=== PATIENT | female | born 1955 | race Two or more races ===

== ENCOUNTER 2021-05-15 15:17 | Emergency (ER) | payer OTHER ==
[~2021-05-15] VITALS: Ht 167.6 cm; Wt 68.5 kg
[2021-05-15 18:09] VITALS: BP 110/68
== END 2021-05-15 18:17 | disposition home or self-care (01) ==
LOC: ER 15:17
DX: M79.672 Pain in left foot (principal); M79.671 Pain in right foot

== ENCOUNTER 2021-05-18 15:46 | Emergency (ER) | payer OTHER ==
[~2021-05-18] VITALS: Ht 167.6 cm; Wt 113.9 kg
[2021-05-18 16:26] LABS: Urine Bacteria FEW /hpf (None Seen); Urine Blood Negative /uL (Negative); Urine Specific Gravity 1.007 (1.001-1.035); Urine WBC 2 /hpf (0 - 5)
[2021-05-18 16:42] LABS: Basophils # (auto) 0.1 10 ^3/uL (0-0.2); Basophils % (auto) 1.1 % (0.0-2.0); Eosinophils # (auto) 0.1 10 ^3/uL (0-0.8); Eosinophils % (auto) 0.6 % (0.0-7.0); Hematocrit 41.3 % (36.0-46.0); Hemoglobin 13.8 g/dL (12.2-16.2); Lymphocytes # (auto) 2.7 10 ^3/uL (0.4-5.4); Lymphocytes % (auto) 25.8 % (10.0-50.0); Mean Corpuscular Hemoglobin 28.3 pg (28.0-32.0); Mean Corpuscular Hgb Conc. 33.3 g/dL (32.0-36.0); Mean Corpuscular Volume 84.9 fL (80.0-100.0); Monocytes # (auto) 0.4 10 ^3/uL (0-1.3); Monocytes % (auto) 3.4 % (0.0-12.0); Neutrophils # (auto) 7.3 10 ^3/uL (1.6-8.6); Neutrophils % (auto) 69.1 % (37.0-80.0); Red Blood Cells 4.86 10^6/uL (4.0-5.20); Red Cell Distribution Width 15.2 % (11.8-14.3); White Blood Cell 10.5 10^3/uL (4.4-10.8)
[2021-05-18 17:04] LABS: Albumin 3.3 g/dL (3.4-5.0); Anion Gap 6 (5-15); Blood Urea Nitrogen 15 mg/dL (7-18); Calcium 8.7 mg/dL (8.5-10.1); Carbon Dioxide 25 mmol/L (21-32); Chloride 107 mmol/L (98-107); Glucose 176 mg/dL (74-106); Potassium 3.8 mmol/L (3.5-5.1); Sodium 138 mmol/L (136-145)
[2021-05-18 17:11] LABS: Alanine Aminotransferase 29 U/L (13-56); Alkaline Phosphatase 103 U/L (45-117); Aspartate Aminotransferase 24 U/L (15-37); Bilirubin, Total 0.3 mg/dL (0.2-1.0); GFR African American 77 mL/min; GFR Non-African American 64 mL/min; Total Protein 7.6 g/dL (6.4-8.2)
[2021-05-18 18:30] VITALS: BP 145/96
== END 2021-05-18 18:35 | disposition home or self-care (01) ==
LOC: ER 15:46
DX: R42 Dizziness and giddiness (principal); M54.12 Radiculopathy, cervical region; I10 Essential (primary) hypertension
CPT/HCPCS: 36415; 70450; 71045; 80053; 81001; 84484; 85025

== ENCOUNTER 2021-06-16 15:28 | Emergency (ER) | payer OTHER ==
[~2021-06-16] VITALS: Ht 167.6 cm; Wt 111.6 kg
[2021-06-16 15:58] VITALS: BP 113/66
[2021-06-16 16:56] LABS: Urine Bacteria FEW /hpf (None Seen); Urine Blood Negative /uL (Negative); Urine Mucus FEW (None Seen); Urine Specific Gravity 1.016 (1.001-1.035); Urine WBC 2 /hpf (0 - 5)
[2021-06-17] MEDS ORDERED: CEPH-322 PO (10:51)
== END 2021-06-16 18:33 | disposition left against medical advice (07) ==
LOC: ER 15:28
DX: R10.2 Pelvic and perineal pain (principal); I10 Essential (primary) hypertension; E78.5 Hyperlipidemia, unspecified; Z90.49 Acquired absence of other specified parts of digestive tract; Z90.710 Acquired absence of both cervix and uterus
CPT/HCPCS: 81001

== ENCOUNTER 2021-06-17 09:47 | Emergency (ER) | payer OTHER ==
[~2021-06-17] VITALS: Ht 167.6 cm; Wt 111.6 kg
[2021-06-17 10:43] VITALS: BP 120/71
[2021-06-17] MEDS ORDERED: CEPH-322 PO (10:51)
== END 2021-06-17 10:59 | disposition home or self-care (01) ==
LOC: ER 09:47
DX: L91.8 Other hypertrophic disorders of the skin (principal); I10 Essential (primary) hypertension; E78.5 Hyperlipidemia, unspecified; Z90.49 Acquired absence of other specified parts of digestive tract; Z90.710 Acquired absence of both cervix and uterus; Z79.2 Long term (current) use of antibiotics

== ENCOUNTER 2022-10-07 11:27 | Emergency (ER) | payer OTHER ==
[~2022-10-07] VITALS: Ht 167.6 cm; Wt 115.4 kg
[~2022-10-07 11:27] MED LIST: CEPH-322 PO
[2022-10-07 12:40] LABS: Albumin 3.5 g/dL (3.4-5.0); Potassium 4.3 mmol/L (3.5-5.1)
[2022-10-07 12:43] LABS: BUN/Creatinine Ratio 25.3; Bilirubin, Total 0.3 mg/dL (0.2-1.0); Total Protein 7.4 g/dL (6.4-8.2)
[2022-10-07 12:56] LABS: Urine Bacteria FEW /hpf (None Seen); Urine Blood Negative /uL (Negative); Urine Mucus FEW (None Seen); Urine Specific Gravity 1.026 (1.001-1.035); Urine WBC 166 /hpf (0 - 5)
[2022-10-07] MEDS ORDERED: NITR-87 PO (13:02)
[2022-10-07] MEDS ORDERED: cefTRIAXone SOD 1,000 MG VL IM ONE (13:15)
[2022-10-07 13:17] LABS: Basophils # (auto) 0.1 10 ^3/uL (0-0.2); Basophils % (auto) 0.6 % (0.0-2.0); Eosinophils # (auto) 0.1 10 ^3/uL (0-0.8); Eosinophils % (auto) 0.6 % (0.0-7.0); Hemoglobin 13.7 g/dL (12.2-16.2); Lymphocytes # (auto) 2.2 10 ^3/uL (0.4-5.4); Lymphocytes % (auto) 24.3 % (10.0-50.0); Mean Corpuscular Hemoglobin 28.4 pg (28.0-32.0); Mean Corpuscular Hgb Conc. 32.6 g/dL (32.0-36.0); Mean Corpuscular Volume 87.1 fL (80.0-100.0); Monocytes # (auto) 0.4 10 ^3/uL (0-1.3); Monocytes % (auto) 4.4 % (0.0-12.0); Neutrophils # (auto) 6.3 10 ^3/uL (1.6-8.6); Neutrophils % (auto) 70.1 % (37.0-80.0); Red Blood Cells 4.82 10^6/uL (4.0-5.20); Red Cell Distribution Width 14.1 % (11.8-14.3)
[2022-10-07] MEDS ORDERED: LIDOCAINE 1% HCL (LOCAL ANESTH.) INJ 20ML MDV ONE (13:36)
[2022-10-07 15:23] VITALS: BP 100/61
== END 2022-10-07 15:24 | disposition home or self-care (01) ==
LOC: ER 11:27
DX: N39.0 Urinary tract infection, site not specified (principal); N20.0 Calculus of kidney; I10 Essential (primary) hypertension; E78.5 Hyperlipidemia, unspecified; Z90.49 Acquired absence of other specified parts of digestive tract; Z90.710 Acquired absence of both cervix and uterus
CPT/HCPCS: 36415; 74176; 80053; 81001; 85025; 96372; 99285; J0696; J2001

== ENCOUNTER → 2022-12-10 | Day surgery (SDC) | payer OTHER ==
[~2022-12-10] VITALS: Ht 167.6 cm; Wt 115.2 kg
[~2022-12-10] MED LIST changes: -CEPH-322 PO; +HYDROmorphone HCL 2 MG/ML VL/or syr IV PRN; +LIDOCAINE 2% (LOCAL ANESTH.) PF 5ml SDV ONE; +MIDAZOLAM HCL 2MG/2ML 2ml VIAL (1mg/ml) ONE; +ONDANSETRON HCL 4 MG/2 ML VIAL IV PRN; +ONDANSETRON HCL 4 MG/2 ML VIAL ONE; +PROPOFOL 10 MG/ML 20 ML IV ONE; +ceFAZolin 1GM/50ML 100 ML IV ONE; +fentaNYL CITRATE 100 MCG/2 ML VL ONE
[2022-12-10 10:40] VITALS: BP 115/64
== END | disposition home or self-care (01) ==
LOC: SUR 06:44
PROVIDERS: ATTEND Urology
DX: N20.0 Calculus of kidney (principal); E66.9 Obesity, unspecified
CPT/HCPCS: 50590; C1769; J0690; J2001; J2250; J2405; J2704; J3010; J7030

== ENCOUNTER 2023-01-27 12:30 | Emergency (ER) | payer OTHER ==
[~2023-01-27] VITALS: Ht 167.6 cm; Wt 117.0 kg
[2023-01-27 13:25] LABS: Urine Bacteria FEW /hpf (None Seen); Urine Blood Negative /uL (Negative); Urine Mucus FEW (None Seen); Urine Specific Gravity 1.023 (1.001-1.035); Urine WBC 8 /hpf (0 - 5)
[2023-01-27] MEDS ORDERED: BENZ100C97 PO (16:11)
[2023-01-27] MEDS ORDERED: NITR-87 PO (16:11)
[2023-01-27 16:34] VITALS: BP 124/55
== END 2023-01-27 16:18 | disposition home or self-care (01) ==
LOC: ER 12:30
DX: N39.0 Urinary tract infection, site not specified (principal); R05.9 Cough, unspecified; I10 Essential (primary) hypertension; E78.5 Hyperlipidemia, unspecified; Z87.442 Personal history of urinary calculi; Z90.49 Acquired absence of other specified parts of digestive tract; Z90.710 Acquired absence of both cervix and uterus; Z79.899 Other long term (current) drug therapy
CPT/HCPCS: 81001

== ENCOUNTER 2023-08-14 13:00 | Emergency (ER) | payer OTHER ==
[~2023-08-14] VITALS: Ht 167.6 cm; Wt 118.6 kg
[~2023-08-14 13:00] MED LIST changes: +BENZ100C97 PO; -HYDROmorphone HCL 2 MG/ML VL/or syr IV PRN; -LIDOCAINE 2% (LOCAL ANESTH.) PF 5ml SDV ONE; -MIDAZOLAM HCL 2MG/2ML 2ml VIAL (1mg/ml) ONE; +NITR-87 PO; -ONDANSETRON HCL 4 MG/2 ML VIAL IV PRN; -ONDANSETRON HCL 4 MG/2 ML VIAL ONE; -PROPOFOL 10 MG/ML 20 ML IV ONE; -ceFAZolin 1GM/50ML 100 ML IV ONE; -fentaNYL CITRATE 100 MCG/2 ML VL ONE
[2023-08-14] MEDS ORDERED: KETOROLAC TROMETH 60MG/2ML VIAL IM ONE (14:30)
[2023-08-14 14:36] VITALS: BP 137/66; PULSE 89; RESP 17; TEMP 99; O2SAT 96
[2023-08-14 16:37] LABS: Urine Bacteria FEW /hpf (None Seen); Urine Blood Negative /uL (Negative); Urine Clarity HAZY (Clear); Urine Color Yellow (Yellow); Urine Hyaline Cast FEW /lpf (0 - 2); Urine Mucus FEW (None Seen); Urine Protein, UAD TRACE (Negative); Urine Specific Gravity 1.025 (1.001-1.035); Urine Urobilinogen Normal (Negative); Urine WBC 40 /hpf (0 - 5); Urine pH 5.5 (5.0-8.0)
[2023-08-14] MEDS ORDERED: BACDST PO (17:00)
[2023-08-14] MEDS ORDERED: IBUP-1455 PO (17:00)
[2023-08-14] MEDS ORDERED: PHEN-1044 PO (17:00)
== END 2023-08-14 17:10 | disposition home or self-care (01) ==
LOC: ER 13:00
DX: N39.0 Urinary tract infection, site not specified (principal); N20.0 Calculus of kidney; K76.0 Fatty (change of) liver, not elsewhere classified; R16.0 Hepatomegaly, not elsewhere classified; I10 Essential (primary) hypertension; E78.5 Hyperlipidemia, unspecified; Z90.49 Acquired absence of other specified parts of digestive tract; Z90.710 Acquired absence of both cervix and uterus; Z79.899 Other long term (current) drug therapy
CPT/HCPCS: 74176; 76775; 81001; 96372; 99285; J1885

== ENCOUNTER 2023-11-22 02:07 | Inpatient (IN) | payer OTHER ==
[~2023-11-22] VITALS: Ht 167.6 cm; Wt 124.0 kg
[~2023-11-22 02:07] MED LIST changes: +BACDST PO; +IBUP-1455 PO; +PHEN-1044 PO
[2023-11-22 05:28] LABS: Chloride 104 mmol/L (98-107); Potassium 4.3 mmol/L (3.5-5.1); Sodium 136 mmol/L (136-145)
[2023-11-22 05:29] LABS: Anion Gap 12 (5-15); Carbon Dioxide 20 mmol/L (20-30)
[2023-11-22 05:30] LABS: Calcium 9.7 mg/dL (8.7-10.4)
[2023-11-22 05:31] LABS: Basophils # (auto) 0.1 10 ^3/uL (0-0.2); Basophils % (auto) 0.8 % (0.0-2.0); Eosinophils # (auto) 0 10 ^3/uL (0-0.8); Eosinophils % (auto) 0.1 % (0.0-7.0); Hematocrit 39.4 % (36.0-46.0); Hemoglobin 12.8 g/dL (12.2-16.2); Lymphocytes # (auto) 2.1 10 ^3/uL (0.4-5.4); Lymphocytes % (auto) 12.4 % (10.0-50.0); Mean Corpuscular Hemoglobin 27.8 pg (28.0-32.0); Mean Corpuscular Hgb Conc. 32.6 g/dL (32.0-36.0); Mean Corpuscular Volume 85.5 fL (80.0-100.0); Monocytes # (auto) 0.8 10 ^3/uL (0-1.3); Monocytes % (auto) 4.7 % (0.0-12.0); Neutrophils # (auto) 13.8 10 ^3/uL (1.6-8.6); Red Blood Cells 4.61 10^6/uL (4.0-5.20); Red Cell Distribution Width 14.4 % (11.8-14.3); White Blood Cell 16.9 10^3/uL (4.4-10.8)
[2023-11-22 05:35] LABS: BUN/Creatinine Ratio 19.1 (10.0-20.0); Blood Urea Nitrogen 22 mg/dL (9-23); Glucose 190 mg/dL (74-106)
[2023-11-22] MEDS ORDERED: ONDANSETRON HCL 4 MG/2 ML VIAL IV PRN (06:15)
[2023-11-22] MEDS ORDERED: MORPHINE SULFATE INJ 2 MG/ml SYRG IV PRN (06:15)
[2023-11-22] MEDS ORDERED: NITROGLYCERIN 0.4 MG SL TAB SL PRN (06:15)
[2023-11-22] MEDS ORDERED: hydrALAZINE HCL 20 MG/ML VL IV PRN (06:15)
[2023-11-22] MEDS ORDERED: HYDROcodone-ACET 5/325MG TAB PO PRN (06:15)
[2023-11-22] MEDS: MORPHINE SULFATE 4 MG/ML SYR/VIAL IV ONE (06:21)
[2023-11-22] MEDS: ONDANSETRON HCL 4 MG/2 ML VIAL IV ONE (06:22)
[2023-11-22] MEDS: metroNIDAZOLE 500MG/100ML 100 ML IV ONE (06:22)
[2023-11-22] MEDS: SODIUM CHLORIDE 0.9% 1,000 ML IV SCH (07:00)
[2023-11-22 07:05] LABS: Urine Bacteria None Seen /hpf (None Seen)
[2023-11-22] MEDS ORDERED: DEXTROSE (50%) 50ML SYRG IV PRN (07:15)
[2023-11-22 07:21] LABS: Urine Blood 2+ /uL (Negative); Urine Clarity Clear (Clear); Urine Color Light-Yellow (Yellow); Urine Protein, UAD Negative (Negative); Urine Specific Gravity 1.021 (1.001-1.035); Urine Urobilinogen Normal (Negative); Urine WBC 10 /hpf (0 - 5)
[2023-11-22 10:30] VITALS: PULSE 82; RESP 16; O2SAT 94
[2023-11-22 10:53] VITALS: BP 114/63; PULSE 82; RESP 16; TEMP 98.2; O2SAT 94
[2023-11-22 11:17] VITALS: BP 114/63; PULSE 82; RESP 16; TEMP 98.2
[2023-11-22] MEDS ORDERED: EZET10TA24 PO (11:25)
[2023-11-22] MEDS: ENOXAPARIN SOD 40 MG/0.4 ML SYRINGE SC SCH (11:25)
[2023-11-22] MEDS ORDERED: CIPR500T4 PO (11:25)
[2023-11-22] MEDS ORDERED: OLME40TA78 PO (11:25)
[2023-11-22] MEDS ORDERED: HYDR-4902 PO (11:25)
[2023-11-22] MEDS: levoFLOXacin 500MG 100 ML IV SCH (11:25)
[2023-11-22] MEDS ORDERED: DOCU-94 PO ×2 (11:25)
[2023-11-22] MEDS ORDERED: AMLO1TAB22 PO (11:25)
[2023-11-22] MEDS: amLODIPine BESYLATE 5 MG TAB PO SCH (11:26)
[2023-11-22] MEDS: PANTOPRAZOLE 40 MG TAB PO SCH (11:26)
[2023-11-22] MEDS: ACCU-CHEK COMFORT CURVE STRIP VI SCH (12:19)
[2023-11-22] MEDS: InsuLIN REG 1unit/0.01ml Soln (100units/ml) SC SCH (12:20)
[2023-11-22] MEDS: ACETAMINOPHEN 325 MG TAB PO PRN (14:41)
[2023-11-22] MEDS: metroNIDAZOLE 500MG/100ML 100 ML IV SCH (14:41)
[2023-11-22 17:00] VITALS: BP_SYST 118; BP_SYST 122; BP_DIAS 62; BP_DIAS 72; PULSE 107; PULSE 90; RESP 17; RESP 20; TEMP 98.2; TEMP 98.6; O2SAT 94; O2SAT 96
[2023-11-22] MEDS: GOLYTELY 4L KIT PO ONE (18:34)
[2023-11-22 21:00] VITALS: BP 120/69; PULSE 93; RESP 18; TEMP 98.1; O2SAT 93
[2023-11-23] VITALS (7 sets, daily range): BP systolic 124–139; BP diastolic 60–73; PULSE 78–102; RESP 17–18; TEMP 97.7–98.7; O2SAT 93–96
[2023-11-23 07:28] LABS: Basophils # (auto) 0.1 10 ^3/uL (0-0.2); Basophils % (auto) 0.7 % (0.0-2.0); Eosinophils # (auto) 0 10 ^3/uL (0-0.8); Eosinophils % (auto) 0.3 % (0.0-7.0); Hematocrit 36.6 % (36.0-46.0); Hemoglobin 11.8 g/dL (12.2-16.2); Lymphocytes # (auto) 2.1 10 ^3/uL (0.4-5.4); Lymphocytes % (auto) 16.2 % (10.0-50.0); Mean Corpuscular Hgb Conc. 32.3 g/dL (32.0-36.0); Mean Corpuscular Volume 89.6 fL (80.0-100.0); Monocytes # (auto) 0.9 10 ^3/uL (0-1.3); Monocytes % (auto) 7.1 % (0.0-12.0); Neutrophils # (auto) 9.8 10 ^3/uL (1.6-8.6); Neutrophils % (auto) 75.7 % (37.0-80.0); Red Blood Cells 4.09 10^6/uL (4.0-5.20); Red Cell Distribution Width 15.2 % (11.8-14.3); White Blood Cell 12.9 10^3/uL (4.4-10.8)
[2023-11-23 07:38] LABS: Anion Gap 9 (5-15); Carbon Dioxide 23 mmol/L (20-30); Chloride 105 mmol/L (98-107); Potassium 4.1 mmol/L (3.5-5.1); Sodium 137 mmol/L (136-145)
[2023-11-23 07:40] LABS: Calcium 8.9 mg/dL (8.7-10.4)
[2023-11-23 07:44] LABS: Glucose 150 mg/dL (74-106)
[2023-11-23 07:45] LABS: BUN/Creatinine Ratio 16.2 (10.0-20.0); Blood Urea Nitrogen 18 mg/dL (9-23)
[2023-11-23] MEDS: DOCUSATE SOD 100 MG CAP PO PRN (10:19)
[2023-11-23] MEDS: BISACODYL 10 MG RECT SUPP PR ONE (16:09)
[2023-11-23] MEDS: LACTULOSE 20Gm/30ML SOLN PO PRN (16:10)
[2023-11-24 01:00] VITALS: BP 135/61; PULSE 61; RESP 17; TEMP 98.1; O2SAT 96
[2023-11-24 05:00] VITALS: BP 138/66; PULSE 73; RESP 17; TEMP 98.1; O2SAT 92
[2023-11-24 06:46] LABS: Chloride 108 mmol/L (98-107); Potassium 3.7 mmol/L (3.5-5.1); Sodium 137 mmol/L (136-145)
[2023-11-24 06:47] LABS: Anion Gap 9 (5-15); Calcium 8.8 mg/dL (8.7-10.4); Carbon Dioxide 20 mmol/L (20-30)
[2023-11-24 06:52] LABS: BUN/Creatinine Ratio 10.9 (10.0-20.0); Blood Urea Nitrogen 11 mg/dL (9-23); Glucose 160 mg/dL (74-106)
[2023-11-24 07:26] LABS: Basophils # (auto) 0 10 ^3/uL (0-0.2); Basophils % (auto) 0.3 % (0.0-2.0); Eosinophils # (auto) 0 10 ^3/uL (0-0.8); Eosinophils % (auto) 0.3 % (0.0-7.0); Hematocrit 34.8 % (36.0-46.0); Hemoglobin 11.1 g/dL (12.2-16.2); Lymphocytes # (auto) 1.8 10 ^3/uL (0.4-5.4); Lymphocytes % (auto) 13.4 % (10.0-50.0); Mean Corpuscular Hemoglobin 28.1 pg (28.0-32.0); Mean Corpuscular Hgb Conc. 31.9 g/dL (32.0-36.0); Mean Corpuscular Volume 88.1 fL (80.0-100.0); Monocytes # (auto) 0.9 10 ^3/uL (0-1.3); Monocytes % (auto) 6.5 % (0.0-12.0); Neutrophils # (auto) 10.7 10 ^3/uL (1.6-8.6); Neutrophils % (auto) 79.5 % (37.0-80.0); Red Blood Cells 3.96 10^6/uL (4.0-5.20); Red Cell Distribution Width 14.7 % (11.8-14.3); White Blood Cell 13.4 10^3/uL (4.4-10.8)
[2023-11-24 09:00] VITALS: BP 127/67; PULSE 96; RESP 18; TEMP 98.7; O2SAT 93
[2023-11-24 10:30] VITALS: PULSE 80; RESP 18; O2SAT 95
[2023-11-24 13:00] VITALS: BP 138/68; PULSE 98; RESP 18; TEMP 98.4; O2SAT 98
[2023-11-24] MEDS ORDERED: AUG875T PO (15:31)
[2023-11-24] MEDS ORDERED: METF-370 PO (15:33)
== END 2023-11-24 17:37 | disposition home or self-care (01) | DRG 392 ==
LOC: ER 02:07 → OVERFLOW 06:25 → WEST WING 09:40
PROVIDERS: ADMIT Nurse Practitioner Family; ATTEND Internal Medicine
DX: K57.32 Diverticulitis of large intestine without perforation or abscess without bleeding (principal); Z68.41 Body mass index [BMI] 40.0-44.9, adult; N20.0 Calculus of kidney; I10 Essential (primary) hypertension; E66.01 Morbid (severe) obesity due to excess calories; K59.00 Constipation, unspecified; E78.00 Pure hypercholesterolemia, unspecified; E11.9 Type 2 diabetes mellitus without complications; Z87.442 Personal history of urinary calculi; Z90.710 Acquired absence of both cervix and uterus; Z90.49 Acquired absence of other specified parts of digestive tract; Z82.0 Family history of epilepsy and other diseases of the nervous system
CPT/HCPCS: 36415; 74176; 80048; 81001; 82962; 83036; 83605; 85025; 87040; 87086; 96365; 96375; G0378; J1815; J1956; J2405; J3490

== ENCOUNTER → 2024-07-23 | Day surgery (SDC) | payer OTHER ==
[~2024-07-23] VITALS: Ht 167.6 cm; Wt 118.4 kg
[~2024-07-23] MED LIST changes: +ACETAMINOPHEN IV 1000 MG/100ML (10MG/ML) IV PRN; +AMLO1TAB22 PO; -BENZ100C97 PO; +CIPROFLOXACIN 400MG/200ML 200 ML IV ONE; +DexAMETHasone SOD PHOS 10MG/1ML VIAL INJ ONE; +EZET10TA24 PO; +HYDROmorphone HCL 2 MG/ML VL/or syr IV PRN; -IBUP-1455 PO; +MEPERIDINE HCL (25 MG/ML) 1ML VIAL IV PRN; -NITR-87 PO; +OLME40TA78 PO; +ONDANSETRON HCL 4 MG/2 ML VIAL ONE; -PHEN-1044 PO; +SUCCINYLCHOLINE CHLORIDE 20 MG/ML 10ML VIAL IV ONE; +ePHEDrine SULFATE 50 MG/ML AMP ONE; +fentaNYL CITRATE 100 MCG/2 ML VL ONE
[2024-07-23] MEDS: IOHEXOL 300 MG/ML 100ML BOTTLE IJ ONE (08:25)
[2024-07-23 09:04] VITALS: O2SAT 98
[2024-07-23 09:05] VITALS: TEMP 97
--- NOTE | 2024-07-23 09:14 | DVHDS2 ---
New Physician D'charge PN Admitting Diagnosis Admitting Diagnosis Right kidney stones Complete duplication of the right kidney Discharge Diagnosis Same Operations or Procedures Cystoscopy with right retrograde pyelogram Right ureteroscopic laser lithotripsy with renal evacuation (CVAC) Reason(s) For Hospitalization Surgery Treatment Plan Discharge Condition of Discharge Good Disposition Home Discharge Instructions Diet: Regular Activity: Light activity Activity comment: As tolerated Medications: Given Follow Up Care Follow Up/Referral: Two weeks with [facility] Discharge Statement: "Patient was advised to return to the ER or call 911 if any headaches, dizziness, shortness of breath, chest pain, abdominal pain, bleeding, fevers, or worsening of medical condition. Patient was counseled about treatment plan, medications, possible side effects, patientverbalized understanding. All questions were answered to the best of my ability. This discharge took greater then 30 minutes in planning, reviewing documentation, counseling the patient, and discussing with other team members." FORTINO BOLIVAR MD Jul 23, 2024 09:14
[2024-07-23] MEDS: ONDANSETRON HCL 4 MG/2 ML VIAL IV ONE (09:28)
[2024-07-23 10:12] VITALS: BP 124/67; PULSE 94; RESP 16; O2SAT 96
--- NOTE | 2024-07-23 11:44 | DVH ---
FLUOROSCOPY TIME: 91 seconds TECHNIQUE: Intraoperative radiographs of the abdomen were obtained. COMPARISON: None FINDINGS: Refer to intraoperative report for further evaluation. IMPRESSION: Refer to intraoperative report for further evaluation.
--- NOTE | 2024-07-23 11:44 | DVH ---
FLUOROSCOPY TIME: 91 seconds TECHNIQUE: Intraoperative radiographs of the abdomen were obtained. COMPARISON: None FINDINGS: Refer to intraoperative report for further evaluation. IMPRESSION: Refer to intraoperative report for further evaluation.
--- NOTE | 2024-07-29 14:06 | ECG ---
[facility] Test Date: 2024-07-23 Test Time: 07:39:13 Pat Name: IZA MARIE Department: Room: Gender: F Retail Marketing Executive: SAMREEN : 1955 Requested By: FORTINO BOLIVAR Order Number: [id number] Reading MD: Kang Le Measurements Intervals [place] Rate: 86 P: 63 AK: 180 QRS: 39 QRSD: 84 T: 60 QT: 376 QTc: 449 Interpretive Statements Sinus rhythm Artifact present Electronically Signed On 07-29-2024 20:35:19 PST by Kang Le Please click the below link to view image of tracing.
--- NOTE | 2024-07-29 14:09 | ECG ---
[facility] Test Date: 2024-07-23 Test Time: 07:39:45 Pat Name: IZA MARIE Department: Room: Gender: F [employer] Investigator: SAMREEN : 1955 Requested By: FORTINO BOLIVAR Order Number: [id number] Reading MD: Kang Le Measurements Intervals [place] Rate: 86 P: 53 DE: 180 QRS: 36 QRSD: 88 T: 51 QT: 378 QTc: 452 Interpretive Statements Normal sinus rhythm Electronically Signed On 07-29-2024 20:35:25 PST by Kang Le Please click the below link to view image of tracing.
== END | disposition home or self-care (01) ==
LOC: SUR 06:03
PROVIDERS: ATTEND Urology
DX: N20.0 Calculus of kidney (principal); I10 Essential (primary) hypertension; E78.5 Hyperlipidemia, unspecified; E66.9 Obesity, unspecified; Q63.0 Accessory kidney; Z68.41 Body mass index [BMI] 40.0-44.9, adult; Z79.899 Other long term (current) drug therapy; Z90.721 Acquired absence of ovaries, unilateral; Z90.710 Acquired absence of both cervix and uterus; Z90.49 Acquired absence of other specified parts of digestive tract; Z98.890 Other specified postprocedural states
CPT/HCPCS: 52353; 74018; 82360; 88300; J0330; J0744; J1100; J2405; J3010; J7050; Q9967; 76000; 93005

== ENCOUNTER 2024-07-25 07:45 | Emergency (ER) | payer OTHER ==
[~2024-07-25] VITALS: Ht 167.6 cm; Wt 120.0 kg
[~2024-07-25 07:45] MED LIST changes: -ACETAMINOPHEN IV 1000 MG/100ML (10MG/ML) IV PRN; -BACDST PO; -CIPROFLOXACIN 400MG/200ML 200 ML IV ONE; -DexAMETHasone SOD PHOS 10MG/1ML VIAL INJ ONE; -HYDROmorphone HCL 2 MG/ML VL/or syr IV PRN; -MEPERIDINE HCL (25 MG/ML) 1ML VIAL IV PRN; -ONDANSETRON HCL 4 MG/2 ML VIAL ONE; -SUCCINYLCHOLINE CHLORIDE 20 MG/ML 10ML VIAL IV ONE; -ePHEDrine SULFATE 50 MG/ML AMP ONE; -fentaNYL CITRATE 100 MCG/2 ML VL ONE
--- NOTE | 2024-07-25 08:12 | ED.PDOC ---
General HPI Comments 68 year old female presents to the ED with chief complaint of hematuria. Patient reports that she had a recent Lithotripsy performed on for a 13mm kidney stone by Dr. Ovi Sanchez. Patient relays that since yesterday, she has been experiencing hematuria whenever she urinates. Patient denies any flank pain, fever, chills, dizziness, dysuria, or abdominal pain. Time Seen by MD: 08:04 Primary Care Provider: LEANDRO Montelongo notes: Nurses Notes, Medications, Allergies Allergies: Coded Allergies: NO KNOWN ALLERGIES (Unverified , 07/17/24) Home Meds Active Scripts Sulfamethoxazole W/Trimethopri (Bactrim Ds Tablet) 1 Tab Tb, 1 TAB PO BID for 10 Days, #20 TAB Prov:ADRIANNA KEN MD 07/25/24 Reported Medications Amlodipine Besylate (Amlodipine Besylate) 5 Mg Tab, 10 MG PO DAILY for 30 Days, MG 11/22/23 Olmesartan Medoxomil (Benicar) 40 Mg Tab, 1 TAB PO DAILY, #30 TAB 5 Refills 11/22/23 Ezetimibe-Simvastatin (Vytorin) 1 Tab Tab, 1 TAB PO DAILY, #30 TAB 5 Refills 11/22/23 Information Source: Patient Mode of Arrival: Ambulatory Severity: Moderate Inability to void: None Timing: Hours Duration: Since onset Prehospital treatment: None Onset: Spontaneous Symptoms: Hematuria History of: Kidney stone Location: None Modifying factors: None associated signs and symptoms: Hematuria Past Medical History PAST MEDICAL HISTORY: High Lipids, HTN, Kidney Stones Surgical History: Cholecystectomy, Hysterectomy, Tonsillectomy Surgical History (Other): Lithotripsy, oopherectomy FEATHER BALER History: No Pertinent FEATHER BALER History Family History Family History: Reviewed,noncontributory to illness Social History Smoker: Non-Smoker Alcohol: Denies ETOH Use Drugs: Denies Drug Use Lives In: Home Constitutional: denies: chills, diaphoresis, fatigue, fever, malaise, sweats, weakness, others EENTM: denies: blurred vision, double vision, ear bleeding, ear discharge, ear drainage, ear pain, ear ringing, eye pain, eye redness, hearing loss, mouth pain, mouth swelling, nasal discharge, nose bleeding, nose congestion, nose pain, photophobia, tearing, throat pain, throat swelling, voice changes, others Respiratory: denies: cough, hemoptysis, orthopnea, SOB at rest, shortness of breath, SOB with excertion, stridor, wheezing, others Cardiovascular: denies: chest pain, dizzy spells, diaphoresis, Dyspnea on exertion, edema, irregular heart beat, left arm pain, lightheadedness, pa lpitations, PND, syncope, others Gastrointestinal: denies: abdomen distended, abdominal pain, blood streaked bowels, constipated, diarrhea, dysphagia, difficulty swallowing, hematemesis, melena, nausea, poor appetite, poor fluid intake, rectal bleeding, rectal pain, vomiting, others Genitourinary: reports: hematuria; denies: abnormal vagina bleeding, burning, dyspareunia, dysuria, flank pain, frequency, incontinence, pain, , vagina discharge, urgency, others Neurological: denies: dizziness, fainting, headache, left sided numbness, left sided weakness, numbness, paresthesia, pre-existing deficit, right sided numbness, right sided weakness, seizure, speech problems, tingling, tremors, weakness, others Musculoskeletal: denies: back pain, gout, joint pain, joint swelling, muscle pain, muscle stiffness, neck pain, others Integumetry: denies: bruises, change in color, change in hair/nails, dryness, laceration, lesions, lumps, rash, wounds, others Allergic/Immunocompromised: denies: Difficulty Healing, Frequent Infections, Hives, Itching, others Hematologic/Lymphatic: denies: anemia, blood clots, easy bleeding, easy bruising, swollen glands, others Endocrine: denies: excessive hunger, excessive sweating, excessive thirst, excessive urination, flushing, intolerance to cold, intolerance to heat, unexplained weight gain, unexplained weight loss, others Psychiatric: denies: anxiety, bipolar disorder, depression, hopeless, panic disorder, schizophrenia, sleepless, suicidal, others All Other Systems: Reviewed and Negative Physical Exam General Appearance: Moderate Distress, Normal HEENT: Normal ENT Inspection, PERRL/EOMI Neck: Full Range of Motion, Non-Tender, Normal, Normal Inspection Respiratory: Chest Non-Tender, Lungs Clear, No Accessory Muscle Use, No Respiratory Distress, Normal Breath Sounds Cardiovascular: No Edema, No JVD, No Murmur, No Gallop, Normal Peripheral Pulses, Regular Rate/Rhythm Breast Exam: Deferred Gastrointestinal: No Organomegaly, Non Tender, No Pulsatile Mass, Normal Bowel Sounds, Soft Genitalia: Deferred Pelvic: Deferred Rectal: Deferred Extremities: No calf tenderness, Normal capillary refill, Normal inspection, Normal range of motion, Non-tender, No pedal edema Musculoskeletal : Apperance: Normal Neurologic: Alert, paper counter II-XII nml as Tested, No Motor Deficits, Normal Affect, Normal Mood, No Sensory Deficits Cerebellar Function: NOT DONE Reflexes: NOT DONE Skin: Dry, Normal Color, Warm Peripheral Pulses: 3+ Radial (R), 3+ Radial (L) Lymphatic: No Adenopathy Was a procedure done? Was a procedure done?: No Differential Diagnosis Kidney stone (Female): Musculoskeletal pain, Urinary obstruction, Urolithiasis X-Ray, Labs, Meds, VS Vital Signs Date Time Temp Pulse Resp B/P (MAP) Pulse Ox O2 Delivery O2 Flow Rate FiO2 07/25/24 10:15 77 16 94 Room Air 07/25/24 10:12 99.1 77 16 121/64 (83) 94 99.1 07/25/24 08:12 98.0 84 20 121/80 (94) 96 Lab Test 07/25/24 08:30 07/25/24 08:11 Range/Units Urine Color Brown-red Yellow Urine Clarity Ex.turbid Clear Urine pH 5.5 5.0-9.0 Urine Specific [place] 1.017 1.001-1.035 Urine Protein 1+ H Negative Urine Ketones Negative Negative Urine Blood 3+ H Negative /uL Urine Nitrite Negative Negative Urine Bilirubin Negative Negative Urine Urobilinogen Normal Negative mg/dL Urine Leukocyte Esterase 3+ Negative /uL Urine RBC 5249 0 - 4 /hpf Urine WBC 216 0 - 5 /hpf Urine Squamous Epithelial Cells Few <5 /hpf Urine Bacteria None seen None Seen /hpf Urine Glucose Normal Normal mg/dL White Blood Count 10.5 4.4-10.8 10^3/uL Red Blood Count 4.51 4.0-5.20 10^6/uL Hemoglobin 13.0 12.2-16.2 g/dL Hematocrit 39.0 36.0-46.0 % Mean Corpuscular Volume 86.4 80.0-100.0 fL Mean Corpuscular Hemoglobin 28.8 28.0-32.0 pg Mean Corpuscular Hemoglobin Concent 33.3 32.0-36.0 g/dL Red Cell Distribution Width 14.9 H 11.8-14.3 % Platelet Count 265 140-450 10^3/uL Mean Platelet Volume 7.4 6.9-10.8 fL Neutrophils (%) (Auto) 67.4 37.0-80.0 % Lymphocytes (%) (Auto) 25.9 10.0-50.0 % Monocytes (%) (Auto) 5.3 0.0-12.0 % Eosinophils (%) (Auto) 0.7 0.0-7.0 % Basophils (%) (Auto) 0.7 0.0-2.0 % Neutrophils # (Auto) 7.1 1.6-8.6 10 ^3/uL Lymphocytes # (Auto) 2.7 0.4-5.4 10 ^3/uL Monocytes # (Auto) 0.6 0-1.3 10 ^3/uL Eosinophils # (Auto) 0.1 0-0.8 10 ^3/uL Basophils # (Auto) 0.1 0-0.2 10 ^3/uL Nucleated Red Blood Cells 0.0 % Sodium Level 139 136-145 mmol/L Potassium Level 4.3 3.5-5.1 mmol/L Chloride Level 107 98-107 mmol/L Carbon Dioxide Level 24 20-31 mmol/L Anion Gap 8 5-15 Blood Urea Nitrogen 25 H 9-23 mg/dL Creatinine 1.08 H 0.550-1.02 mg/dL Glomerular Filtration Rate Calc 56 >90 mL/min BUN/Creatinine Ratio 23.1 H 10.0-20.0 Serum Glucose 121 H 74-106 mg/dL Calcium Level 9.6 8.7-10.4 mg/dL Current Medications Medications (Trade) Dose Ordered Sig/Jaime Route Start Time Stop Time Status Last Admin Ceftriaxone Sodium (Rocephin) 1,000 mg ONCE ONCE IM 07/25/24 11:00 07/25/24 11:01 DC 07/25/24 11:55 Patient alert. States that she has having blood in her urine. Vitals stable. Answering all questions. Bleeding from urine. After she came to the ER bleeding has stopped. WBC within normal limits. Hemoglobin within normal limits. Urinalysis UTI. Was given prescription of Bactrim. Reviewed her previous visit. Explained to the patient. Establish intravenous access. Was given fluids. Explained to the patient. Was told to follow up with her primary care physician. Was told to come back if there is any problem. Time of 1ST Reevaluation: 09:04 Reevaluation 1ST: Improved Patient Education/Counseling: Diagnosis, Treatment Family Education/Counseling: No Family Present Additional Information I reviewed the following notes from patient's past medical encounters: 07/23/24 for kidney stone Lithotripsy The following tests were ordered, and results were reviewed by me: BMP, UA, CBC I discussed treatment and results with medical personnel. Departure 1 Departure Time of Disposition: 11:04 Impression: Primary Impression: Urinary tract infection Qualified Codes: N30.01 - Acute cystitis with hematuria Additional Impression: Dehydration Disposition: HOME / SELF CARE / HOMELESS Condition: Good e-Prescriptions Sulfamethoxazole W/Trimethopri (Bactrim Ds Tablet) 1 Tab Tb 1 TAB PO BID for 10 Days, #20 TAB Prov: ADRIANNA KEN MD 07/25/24 Discharged With: Self Critical Care Note Critical Care Time?: No Stability Stability form required: No Heart Score Heart Score: Heart Score Response (Comments) Value History N/A 0 EKG N/A 0 Age N/A 0 Risk Factors N/A 0 Troponin N/A 0 Total 0 I personally scribed for ADRIANNA KEN MD ([email or web address]) on 07/25/24 at 08:12. Electronically submitted by Shimon De La Paz ([email or web address]). I personally scribed for ADRIANNA KEN MD ([email or web address]) on 07/25/24 at 08:13. Electronically submitted by Shimon De La Paz ([email or web address]). ADRIANNA KEN MD Jul 25, 2024 08:12
[2024-07-25 08:46] LABS: Basophils # (auto) 0.1 10 ^3/uL (0-0.2); Basophils % (auto) 0.7 % (0.0-2.0); Eosinophils # (auto) 0.1 10 ^3/uL (0-0.8); Eosinophils % (auto) 0.7 % (0.0-7.0); Lymphocytes # (auto) 2.7 10 ^3/uL (0.4-5.4); Lymphocytes % (auto) 25.9 % (10.0-50.0); Mean Corpuscular Hemoglobin 28.8 pg (28.0-32.0); Mean Corpuscular Hgb Conc. 33.3 g/dL (32.0-36.0); Mean Corpuscular Volume 86.4 fL (80.0-100.0); Monocytes # (auto) 0.6 10 ^3/uL (0-1.3); Monocytes % (auto) 5.3 % (0.0-12.0); Neutrophils # (auto) 7.1 10 ^3/uL (1.6-8.6); Neutrophils % (auto) 67.4 % (37.0-80.0); Platelet Count (auto) 265 10^3/uL (140-450); Red Blood Cells 4.51 10^6/uL (4.0-5.20); Red Cell Distribution Width 14.9 % (11.8-14.3); White Blood Cell 10.5 10^3/uL (4.4-10.8)
[2024-07-25 09:02] LABS: Chloride 107 mmol/L (98-107); Potassium 4.3 mmol/L (3.5-5.1); Sodium 139 mmol/L (136-145)
[2024-07-25 09:03] LABS: Anion Gap 8 (5-15); Calcium 9.6 mg/dL (8.7-10.4); Carbon Dioxide 24 mmol/L (20-31)
[2024-07-25 09:08] LABS: BUN/Creatinine Ratio 23.1 (10.0-20.0)
[2024-07-25 09:16] LABS: Blood Urea Nitrogen 25 mg/dL (9-23); Glucose 121 mg/dL (74-106)
[2024-07-25 10:25] LABS: Urine Bacteria None Seen /hpf (None Seen); Urine Blood 3+ /uL (Negative); Urine Clarity Ex.Turbid (Clear); Urine Protein, UAD 1+ (Negative); Urine Specific Gravity 1.017 (1.001-1.035); Urine Urobilinogen Normal (Negative); Urine WBC 216 /hpf (0 - 5); Urine pH 5.5 (5.0-9.0)
[2024-07-25 10:31] LABS: Urine Color Brown-Red (Yellow)
[2024-07-25] MEDS ORDERED: BACDST PO (11:05)
[2024-07-25] MEDS: cefTRIAXone SOD 1,000 MG VL IM ONE (11:55)
[2024-07-25 12:29] VITALS: BP 109/67; PULSE 77; RESP 16; TEMP 97.9; O2SAT 96
== END 2024-07-25 12:32 | disposition home or self-care (01) ==
LOC: ER 07:45
DX: N39.0 Urinary tract infection, site not specified (principal); E86.0 Dehydration; I10 Essential (primary) hypertension; E78.5 Hyperlipidemia, unspecified; Z90.49 Acquired absence of other specified parts of digestive tract; Z90.710 Acquired absence of both cervix and uterus; Z98.890 Other specified postprocedural states; Z79.899 Other long term (current) drug therapy
CPT/HCPCS: 36415; 80048; 81001; 85025; 96372; 99283; J0696

== ENCOUNTER 2025-06-16 18:49 | Emergency (ER) | payer OTHER ==
[~2025-06-16] VITALS: Ht 167.6 cm; Wt 120.8 kg
[~2025-06-16 18:49] MED LIST changes: +BACDST PO
--- NOTE | 2025-06-16 19:30 | ED.PDOC ---
History of Present Illness HPI Comments 69 year old female presents to the ED with a chief complaint of abdominal pain onset 2 days. Patient states she has been experiencing diffused abdominal pain as well as constipation, nausea and vaginal discharge for the past 2 days. She returned from a [place] trip 2 days ago and shortly after began experiencing symptoms. She had a small bowel movement yesterday, has not been able to since. Denies dysuria, hematuria, fever, chills, vomiting, hematemesis, fever, chills, chest pain,shortness of breath, cough, cold, congestion. No other symptoms or modifying factors present at this time. PHYSICAL EXAM: General: Awake, alert and oriented. No acute distress. Skin: Skin in warm, dry and intact. Appropriate color for ethnicity. HEENT: The head is normocephalic and atraumatic. Conjunctivae are clear without exudates or hemorrhage. Sclera is non-icteric. Eyelids are normal in appearance without swelling or lesions. Oral mucosa is pink and moist Neck: The neck is supple with normal range of motion. No JVD. Cardiac: Heart rate and rhythm are normal. No murmurs, gallops, or rubs are auscultated. Respiratory: No signs of respiratory distress. Lung sounds are clear in all lobes bilaterally without rales, rhonchi, or wheezes. Abdominal: Abdomen is soft, non-tender without distention, guarding or rigidity. Bowel sounds are present and normoactive in all four quadrants. Extremities: Lower extremities without edema. Neurological: The patient is awake, alert and oriented to person, place, and time with normal speech. Speech is clear. There is no facial asymmetry. Psychiatric: Appropriate mood and affect. Good judgement and insight. REVIEW OF SYSTEMS: General: No fever, no chills, or fatigue HEENT: No sore throat, no earache, no congestion, no neck pain. Cardiac: No chest pain. No palpitations. Lungs: No shortness of breath, no cough. GI: nausea, constipation, abdominal pain. no vomiting, no diarrhea, : vaginal discharge. No dysuria, frequency, or urgency. No hematuria. Musculoskeletal: No joint pain , no joint swelling, no extremity edema. Skin: No rash, no itching. Neuro: No headache, no dizziness, no weakness (And as sated in HPI) Chief Complaint: Abdominal Pain Time Seen by MD: 19:20 Primary Care Provider: LEANDRO Montelongo Notes: Medications, Allergies Allergies: Coded Allergies: NO KNOWN ALLERGIES (Unverified , 07/17/24) Home Meds Active Scripts Polyethylene Glycol 3350 (Miralax) 17 Gm Pow, 17 GM PO DAILY for 7 Days, #14 POW Prov:DORON CHAVEZ MD 06/16/25 Cephalexin Monohydrate (Cephalexin) 500 Mg Tab, 1 TAB PO BID for 7 Days, #14 TAB Prov:DORON CHAVEZ MD 06/16/25 Sulfamethoxazole W/Trimethopri (Bactrim Ds Tablet) 1 Tab Tb, 1 TAB PO BID for 10 Days, #20 TAB Prov:ADRIANNA KEN MD 07/25/24 Reported Medications Amlodipine Besylate (Amlodipine Besylate) 5 Mg Tab, 10 MG PO DAILY for 30 Days, MG 11/22/23 Olmesartan Medoxomil (Benicar) 40 Mg Tab, 1 TAB PO DAILY, #30 TAB 5 Refills 11/22/23 Ezetimibe-Simvastatin (Vytorin) 1 Tab Tab, 1 TAB PO DAILY, #30 TAB 5 Refills 11/22/23 Information Source: Patient Mode of Arrival: Ambulatory Severity: Moderate Timing: Days Duration: Since onset Prehospital treatment: None Past Medical History PAST MEDICAL HISTORY: High Lipids, HTN, Kidney Stones Surgical History: Cholecystectomy, Hysterectomy, Tonsillectomy 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 Was a procedure done?: No Differential Dx Considerations may include: Differential diagnoses considered include: Abdominal aortic aneurysm, [place], esophageal rupture, intestinal obstruction, mesenteric ischemia, perforated viscus or solid organ rupture, CHF with hepatomegaly, pneumonia, abscess, appendicitis, biliary disease, diverticulitis, gastritis, gastroenteritis, hepatitis, hernia, inflammatory bowel disease, pancreatitis, peptic ulcer disease, urinary tract infection, ureteral colic, constipation, GERD, irritable syndrome, abdominal wall pain, nonspecific abdominal pain, herpes zoster, nephrolithiasis. [ ]Also ruptured ectopic , ovarian torsion/cyst, tubo- ovarian abscess, PID, endometriosis, mittleschmerz. X-Ray, Labs, Meds, VS Vital Signs Date Time Temp Pulse Resp B/P (MAP) Pulse Ox O2 Delivery O2 Flow Rate FiO2 06/16/25 22:01 Room Air* 0 21 06/16/25 22:01 98.9 99 18 110/71 (84) 97 98.9 06/16/25 18:51 97.9 111 18 140/74 97 97.9 Lab Test 06/16/25 19:53 06/16/25 19:28 Range/Units White Blood Count 13.3 H 4.4-10.8 10^3/uL Red Blood Count 4.68 4.0-5.20 10^6/uL Hemoglobin 13.2 12.2-16.2 g/dL Hematocrit 39.4 36.0-46.0 % Mean Corpuscular Volume 84.3 80.0-100.0 fL Mean Corpuscular Hemoglobin 28.3 28.0-32.0 pg Mean Corpuscular Hemoglobin Concent 33.6 32.0-36.0 g/dL Red Cell Distribution Width 14.6 H 11.8-14.3 % Platelet Count 295 140-450 10^3/uL Mean Platelet Volume 7.3 6.9-10.8 fL Neutrophils (%) (Auto) 80.8 H 37.0-80.0 % Lymphocytes (%) (Auto) 13.7 10.0-50.0 % Monocytes (%) (Auto) 4.6 0.0-12.0 % Eosinophils (%) (Auto) 0.4 0.0-7.0 % Basophils (%) (Auto) 0.5 0.0-2.0 % Neutrophils # (Auto) 10.7 H 1.6-8.6 10 ^3/uL Lymphocytes # (Auto) 1.8 0.4-5.4 10 ^3/uL Monocytes # (Auto) 0.6 0-1.3 10 ^3/uL Eosinophils # (Auto) 0.1 0-0.8 10 ^3/uL Basophils # (Auto) 0.1 0-0.2 10 ^3/uL Nucleated Red Blood Cells 0.0 % Sodium Level 138 136-145 mmol/L Potassium Level 4.4 3.5-5.1 mmol/L Chloride Level 103 98-107 mmol/L Carbon Dioxide Level 23 20-31 mmol/L Anion Gap 12 5-15 Blood Urea Nitrogen 28 H 9-23 mg/dL Creatinine 1.17 H 0.550-1.02 mg/dL Glomerular Filtration Rate Calc 51 >90 mL/min BUN/Creatinine Ratio 23.9 H 10.0-20.0 Serum Glucose 177 H 74-106 mg/dL Calcium Level 9.1 8.7-10.4 mg/dL Urine Color Light-yellow Yellow Urine Clarity Turbid H Clear Urine pH 5.0 5.0-9.0 Urine Specific [place] 1.014 1.001-1.035 Urine Protein Negative Negative Urine Ketones Negative Negative Urine Blood 1+ H Negative /uL Urine Nitrite Negative Negative Urine Bilirubin Negative Negative Urine Urobilinogen Normal Negative mg/dL Urine Leukocyte Esterase 3+ Negative /uL Urine RBC 13 0 - 4 /hpf Urine Microscopic WBC 24 H 0-5 /HPF Urine Squamous Epithelial Cells Few <5 /hpf Urine Bacteria Few H None Seen /hpf Urine Mucus Few None Seen Urine Glucose Normal Normal mg/dL [place] [id number] Ph: [phone] DIAGNOSTIC IMAGING Diagnostic Imaging Report : [id number] Signed PATIENT: IZA MARIE ACCT: [id number] UNIT: [id number] : 1955 LOC: ER ROOM / BED: / AGE / SEX: 69 / F ADM STATUS: REG ER SERVICE 28 ORDERING PHYSICIAN: DORON CHAVEZ MD PROCEDURE(s): KUB - KUB ABDOMEN SINGLE VIEW REASON: Abdominal pain, constipation ORDER NUMBER(s): [id number], ACCESSION NUMBER(s): [id number] Date: 06/16/2025 07:47 PM Examination: XY KUB ABDOMEN SINGLE VIEW History: Abdominal pain, constipation Comparison: CR ABDOMEN 1 VIEW (KUB) on DOS: 08/07/24, XY KUB ABDOMEN SINGLE VIEW on DOS: 07/23/24, CR ABDOMEN 1 VIEW (KUB) on DOS: 05/01/24 TECHNIQUE: Frontal views of the abdomen was obtained. FINDINGS: Bowel gas pattern is unremarkable. The lung bases are unremarkable. No acute osseous abnormality identified. Cortical irregularity of the greater trochanter of the right proximal femur. Correlate for clinical symptoms suggesting fracture. IMPRESSION: 1. Nonobstructive bowel gas pattern. 2. Cortical irregularity of the greater trochanter of the proximal right femur. Correlate for possible symptoms of osseous trauma. ATED BY: PETROS RODRIGUEZ Jr., DO DICTATED DATE/TIME: 06/16/252005 SIGNED BY: PETROS RODRIGUEZ Jr., SIGNED DATE/TIME: 06/16/252005 CC: Time of 1ST Reevaluation: 19:50 Reevaluation 1ST: Unchanged Patient Education/Counseling: Diagnosis, Treatment, Need For Follow Up Family Education/Counseling: No Family Present SEPSIS Sepsis Screen Date sepsis recognized/suspect: Jun 16, 2025 Time Sepsis recognized/suspect: 1852 Recent Procedure: No On Antibiotic Therapy: No Respiratory Rate >20: No Heart Rate >90: Yes Temp<36 C (96.8 F) or >38.3 C: No SBP <90 or MAP <65 mmHG: No New Acute Mental Status Change: No Is the patient on CPAP, BIPAP,: No Physician Orders Kub Abdomen Single View (06/16/25 19:29) Vital Signs Date Time Temp Pulse Resp B/P (MAP) Pulse Ox O2 Delivery O2 Flow Rate FiO2 06/16/25 22:01 Room Air* 0 21 06/16/25 22:01 98.9 99 18 110/71 (84) 97 98.9 06/16/25 18:51 97.9 111 18 140/74 97 97.9 Laboratory Tests Test 06/16/25 19:53 White Blood Count 13.3 10^3/uL (4.4-10.8) H Departure 1 Departure Time of Disposition: 21:29 Impression: Primary Impression: Constipation Additional Impressions: Urinary tract infection Dehydration Disposition: HOME / SELF CARE / HOMELESS Condition: Stable Additional Instructions: ED DISCHARGE INSTRUCTIONS Instructions: Please read all instructions provided in this packet carefully. Although you have been discharged from the Emergency Department, this does not mean that you have a "clean bill of health". No definitive diagnosis for your symptoms has been made today. It is possible that you are in the process of developing a serious illness. This is why you must return to the ED without fail if any new or worsening symptoms (especially if your symptoms include chest pain, trouble breathing, abdominal pain, fever, headache, confusion, trouble seeing, or trouble walking) It is also very important that you see a primary care provider (PCP) within the next 3-5 days to follow up. Your kidney function test was abnormal today. You will need to have this rechecked with the primary care provider within 3-5 days. Be sure to drink plenty of fluids at home. If you are unable to get an appointment, return to the ED for re-evaluation. Preventing Dehydration In Older Adults Dehydration is when the body dries out because of drinking too little fluid, losing too much fluid, or both. Normal fluid loss happens with breathing, urination, and sweating. Too much fluid can be lost through vomiting, diarrhea, or excessive sweating. Dehydration can occur quickly in older adults and may lead to serious health conditions. You may be dehydrated if you experience: dark colored urine frequent urination and only pass a small amount dry mouth or coated tongue constipation or small and hard stools dry skin frequent urinary tract infection headache confusion dizziness or lightheadedness after standing up fast heart rate dry eyes You may not have all of these symptoms at the same time, but all may be caused by not drinking enough fluids. What can I do to prevent dehydration? The best way to replace fluids is to drink enough daily. Many older people do not feel thirsty and are not aware of the need to drink. Men 13 cups/day (3.0L) Women 9 cups/day (2.7L) What should I drink? At least half of what you drink should be water. Good choices of fluid are: Water or calorie-free flavored water Fruit or vegetable juices Milk Decaffeinated or herbal teas Low sodium broth or soups Poor choices are: Canned soups, which can be a hidden source of salt Soft drinks and sports drinks high in sugar Caffeinated drinks such as coffee, tea, and hot chocolate Alcohol *Caffeinated and alcoholic drinks may cause fluid loss. *Alcoholic drinks should be limited to two drinks/day for men and one for women. 1 Drink = 12oz beer, 6oz wine, or 1oz liquor Simple ways to drink more: Use large, easy to hold cups Leave a glass of fluid at your bedside or sitting area Choose a variety of fluids based on what you like Drink fluids during and between meals Remind older adults to drink enough fluid daily e-Prescriptions Polyethylene Glycol 3350 (Miralax) 17 Gm Pow 17 GM PO DAILY for 7 Days, #14 POW Prov: DORON CHAVEZ MD 06/16/25 Cephalexin Monohydrate (Cephalexin) 500 Mg Tab 1 TAB PO BID for 7 Days, #14 TAB Prov: DORON CHAVEZ MD 06/16/25 Comments 69-year-old female who presented with constipation and urinary symptoms. Patient well-appearing, nontoxic. Advised prompt follow-up with PCP, return to the ED with any new, worsening or concerning symptoms. Attestation: I personally saw and evaluated the patient. I agree with the findings and plan of care as documented by the resident note. DORON CHAVEZ MD Critical Care Note Critical Care Time?: No Stability Stability form required: No Heart Score Heart Score: Heart Score Response (Comments) Value History N/A 0 EKG N/A 0 Age N/A 0 Risk Factors N/A 0 Troponin N/A 0 Total 0 I personally scribed for DORON CHAVEZ MD ([email or web address]) on 06/16/25 at 19:29. Electronically submitted by Ella Cottrell ([email or web address]). I personally scribed for DORON CHAVEZ MD ([email or web address]) on 06/16/25 at 20:32. Electronically submitted by Ella Cottrell ([email or web address]). DORON CHAVEZ MD Jun 16, 2025 19:29
--- NOTE | 2025-06-16 20:09 | DVH ---
Date: 06/16/2025 07:47 PM Examination: XY KUB ABDOMEN SINGLE VIEW History: Abdominal pain, constipation Comparison: CR ABDOMEN 1 VIEW (KUB) on DOS: 08/07/24, XY KUB ABDOMEN SINGLE VIEW on DOS: 07/23/24, CR ABDOMEN 1 VIEW (KUB) on DOS: 05/01/24 TECHNIQUE: Frontal views of the abdomen was obtained. FINDINGS: Bowel gas pattern is unremarkable. The lung bases are unremarkable. No acute osseous abnormality identified. Cortical irregularity of the greater trochanter of the right proximal femur. Correlate for clinical symptoms suggesting fracture. IMPRESSION: 1. Nonobstructive bowel gas pattern. 2. Cortical irregularity of the greater trochanter of the proximal right femur. Correlate for possible symptoms of osseous trauma.
[2025-06-16 20:12] LABS: Hematocrit 39.4 % (36.0-46.0); Hemoglobin 13.2 g/dL (12.2-16.2); Mean Corpuscular Hemoglobin 28.3 pg (28.0-32.0); Mean Corpuscular Volume 84.3 fL (80.0-100.0); Nucleated Red Blood Cells % 0.0 %
[2025-06-16 20:15] LABS: Chloride 103 mmol/L (98-107); Potassium 4.4 mmol/L (3.5-5.1); Sodium 138 mmol/L (136-145)
[2025-06-16 20:16] LABS: Urine Protein, UAD Negative (Negative)
[2025-06-16 20:16] LABS: Anion Gap 12 (5-15); Carbon Dioxide 23 mmol/L (20-31)
[2025-06-16 20:17] LABS: Calcium 9.1 mg/dL (8.7-10.4)
[2025-06-16 20:22] LABS: BUN/Creatinine Ratio 23.9 (10.0-20.0)
[2025-06-16 20:43] LABS: Blood Urea Nitrogen 28 mg/dL (9-23); Glucose 177 mg/dL (74-106)
[2025-06-16] MEDS ORDERED: POLY335015 PO (21:27)
[2025-06-16] MEDS ORDERED: CEPH500T PO (21:27)
[2025-06-16 22:01] VITALS: BP 110/71; PULSE 99; RESP 18; TEMP 98.9; O2SAT 97
[2025-06-16] MEDS: CEPHALEXIN 250 MG CAP PO ONE (22:03)
--- NOTE | 2025-06-18 10:16 | ECG ---
[facility] Test Date: 2025-06-16 Test Time: 18:58:42 Pat Name: IZA MARIE Department: ED Room: Gender: F Forensics Analyst: NEMESIO : 1955 Requested By: DORON CHAVEZ Order Number: [id number] Reading MD: Darvin Saldivar Measurements Intervals [place] Rate: 102 P: 80 [place]: 158 QRS: 64 QRSD: 94 T: 53 QT: 326 QTc: 425 Interpretive Statements Sinus tachycardia Low voltage, precordial leads Borderline T wave abnormalities Baseline wander in lead(s) V3 Electronically Signed On 06-18-2025 10:33:13 PST by Darvin Saldivar Please click the below link to view image of tracing.
== END 2025-06-16 22:12 | disposition home or self-care (01) ==
LOC: ER 18:49
DX: K59.00 Constipation, unspecified (principal); N39.0 Urinary tract infection, site not specified; N89.8 Other specified noninflammatory disorders of vagina; E86.0 Dehydration; I10 Essential (primary) hypertension; Z79.899 Other long term (current) drug therapy; Z87.442 Personal history of urinary calculi; Z90.49 Acquired absence of other specified parts of digestive tract; Z90.710 Acquired absence of both cervix and uterus
CPT/HCPCS: 36415; 74018; 80048; 81001; 85025

== ENCOUNTER 2025-06-20 19:34 | Emergency (ER) | payer OTHER ==
[~2025-06-20] VITALS: Ht 167.6 cm; Wt 123.8 kg
[~2025-06-20 19:34] MED LIST changes: +CEPH500T PO; +POLY335015 PO
--- NOTE | 2025-06-20 20:11 | ED.PDOC ---
General HPI Comments This is a 69 year-old female who presents to the ED with a chief complaint of vaginal pressure and dysuria as of today. Patient reports coming to the ED on last week, 06/17/25, where she was diagnosed with a UTI and prescribed Cephalexin. Patient reports starting antibiotics on Saturday. Patient has no further complaints at this time and otherwise denies N/V, fever, chills, fatigue, or weakness. Chief Complaint: Pelvic Pain Time Seen by MD: 20:02 Primary Care Provider: LEANDRO Montelongo notes: Medications, Allergies Allergies: Coded Allergies: NO KNOWN ALLERGIES (Unverified , 07/17/24) Home Meds Active Scripts Nitrofurantoin Monohydrate Mac (Macrobid) 100 Mg Cap, 100 MG PO BID for 5 Days, #10 CAP Prov:CALI GIFFORD 06/20/25 Polyethylene Glycol 3350 (Miralax) 17 Gm Pow, 17 GM PO DAILY for 7 Days, #14 POW Prov:DORON CHAVEZ MD 06/16/25 Cephalexin Monohydrate (Cephalexin) 500 Mg Tab, 1 TAB PO BID for 7 Days, #14 TAB Prov:DORON CHAVEZ MD 06/16/25 Sulfamethoxazole W/Trimethopri (Bactrim Ds Tablet) 1 Tab Tb, 1 TAB PO BID for 10 Days, #20 TAB Prov:ADRIANNA KEN MD 07/25/24 Reported Medications Amlodipine Besylate (Amlodipine Besylate) 5 Mg Tab, 10 MG PO DAILY for 30 Days, MG 11/22/23 Olmesartan Medoxomil (Benicar) 40 Mg Tab, 1 TAB PO DAILY, #30 TAB 5 Refills 11/22/23 Ezetimibe-Simvastatin (Vytorin) 1 Tab Tab, 1 TAB PO DAILY, #30 TAB 5 Refills 11/22/23 Information Source: Patient Mode of Arrival: Ambulatory Severity: Moderate Timing: Hours Duration: Since onset Prehospital treatment: None Onset: Spontaneous associated signs and symptoms: Dysuria, Other (pelvic pressure ) Past Medical History PAST MEDICAL HISTORY: High Lipids, HTN, Kidney Stones Surgical History: Cholecystectomy, Hysterectomy, Tonsillectomy CAREER COORDINATOR History: No Pertinent CAREER COORDINATOR History Family History Family History: Reviewed,noncontributory to illness Social History Smoker: Non-Smoker Alcohol: Denies ETOH Use Drugs: Denies Drug Use Lives In: Home Constitutional: denies: chills, diaphoresis, fatigue, fever, malaise, sweats, weakness, others EENTM: denies: blurred vision, double vision, ear bleeding, ear discharge, ear drainage, ear pain, ear ringing, eye pain, eye redness, hearing loss, mouth pain, mouth swelling, nasal discharge, nose bleeding, nose congestion, nose pain, photophobia, tearing, throat pain, throat swelling, voice changes, others Respiratory: denies: cough, hemoptysis, orthopnea, SOB at rest, shortness of breath, SOB with excertion, stridor, wheezing, others Cardiovascular: denies: chest pain, dizzy spells, diaphoresis, Dyspnea on exertion, edema, irregular heart beat, left arm pain, lightheadedness, palpi tations, PND, syncope, others Gastrointestinal: denies: abdomen distended, abdominal pain, blood streaked bowels, constipated, diarrhea, dysphagia, difficulty swallowing, hematemesis, melena, nausea, poor appetite, poor fluid intake, rectal bleeding, rectal pain, vomiting, others Genitourinary: reports: dysuria, others (pelvic pressure ); denies: abnormal vagina bleeding, burning, dyspareunia, flank pain, frequency, hematuria, incontinence, pain, , vagina discharge, urgency Neurological: denies: dizziness, fainting, headache, left sided numbness, left sided weakness, numbness, paresthesia, pre-existing deficit, right sided numbness, right sided weakness, seizure, speech problems, tingling, tremors, weakness, others Musculoskeletal: denies: back pain, gout, joint pain, joint swelling, muscle pain, muscle stiffness, neck pain, others Integumetry: denies: bruises, change in color, change in hair/nails, dryness, laceration, lesions, lumps, rash, wounds, others Allergic/Immunocompromised: denies: Difficulty Healing, Frequent Infections, Hives, Itching, others Hematologic/Lymphatic: denies: anemia, blood clots, easy bleeding, easy bruising, swollen glands, others Endocrine: denies: excessive hunger, excessive sweating, excessive thirst, excessive urination, flushing, intolerance to cold, intolerance to heat, unexplained weight gain, unexplained weight loss, others Psychiatric: denies: anxiety, bipolar disorder, depression, hopeless, panic disorder, schizophrenia, sleepless, suicidal, others All Other Systems: Reviewed and Negative Physical Exam General Appearance: Mild Distress, Obese HEENT: Normal ENT Inspection, Pharynx Normal, TMs Normal Neck: Full Range of Motion, Non-Tender, Normal, Normal Inspection Respiratory: Chest Non-Tender, Lungs Clear, No Accessory Muscle Use, No Respi ratory Distress, Normal Breath Sounds Cardiovascular: No Edema, No JVD, No Murmur, No Gallop, Normal Peripheral Pulses, Regular Rate/Rhythm Breast Exam: Deferred Gastrointestinal: No Organomegaly, Non Tender, No Pulsatile Mass, Normal Bowel Sounds, Soft Genitalia: Deferred Pelvic: Deferred Rectal: Deferred Extremities: No calf tenderness, Normal capillary refill, Normal inspection, Normal range of motion, Non-tender, No pedal edema Musculoskeletal : Apperance: Normal Neurologic: Alert, green hide inspector II-XII nml as Tested, No Motor Deficits, Normal Affect, Normal Mood, No Sensory Deficits Cerebellar Function: Normal Reflexes: Normal Skin: Dry, Normal Color, Warm Lymphatic: No Adenopathy Was a procedure done? Was a procedure done?: No Differential Diagnosis Kidney stone (Female): Urinary obstruction Urinary Problem (Female): Urolithiasis, UTI, Vaginitis X-Ray, Labs, Meds, VS Vital Signs Date Time Temp Pulse Resp B/P (MAP) Pulse Ox O2 Delivery O2 Flow Rate FiO2 06/20/25 21:45 98.2 99 18 122/70 (87) 96 98.2 06/20/25 19:39 99.0 107 20 128/72 97 99.0 Lab Test 06/20/25 20:33 Range/Units Urine Color Colorless Yellow Urine Clarity Turbid H Clear Urine pH 5.5 5.0-9.0 Urine Specific Orange 1.020 1.001-1.035 Urine Protein Negative Negative Urine Ketones Negative Negative Urine Blood Negative Negative /uL Urine Nitrite Negative Negative Urine Bilirubin Negative Negative Urine Urobilinogen Normal Negative mg/dL Urine Leukocyte Esterase 3+ Negative /uL Urine RBC 13 0 - 4 /hpf Urine Microscopic WBC 126 H 0-5 /HPF Urine Squamous Epithelial Cells Mod <5 /hpf Urine Bacteria None seen None Seen /hpf Urine Glucose 3+ H Normal mg/dL Current Medications Medications (Trade) Dose Ordered Sig/Jaime Route Start Time Stop Time Status Last Admin Lidocaine HCl (Xylocaine 1%) 2.1 ml ONCE ONCE IJ 06/20/25 21:30 06/20/25 21:31 DC 06/20/25 21:40 Ceftriaxone Sodium (Rocephin) 1,000 mg ONCE ONCE IM 06/20/25 21:30 06/20/25 21:31 DC 06/20/25 21:40 Time of 1ST Reevaluation: 20:47 Reevaluation 1ST: Unchanged Patient Education/Counseling: Diagnosis, Treatment Family Education/Counseling: No Family Present SEPSIS Sepsis Screen Date sepsis recognized/suspect: Jun 20, 2025 Time Sepsis recognized/suspect: 1938 Recent Procedure: No On Antibiotic Therapy: No Respiratory Rate >20: No Heart Rate >90: Yes Temp<36 C (96.8 F) or >38.3 C: No SBP <90 or MAP <65 mmHG: No New Acute Mental Status Change: No Is the patient on CPAP, BIPAP,: No Vital Signs Date Time Temp Pulse Resp B/P (MAP) Pulse Ox O2 Delivery O2 Flow Rate FiO2 06/20/25 21:45 98.2 99 18 122/70 (87) 96 98.2 06/20/25 19:39 99.0 107 20 128/72 97 99.0 Medications Medications Dose Ordered Sig/Jaime Route Start Time Stop Time Status Last Admin Dose Admin Ceftriaxone Sodium 1,000 mg ONCE ONCE IM 06/20/25 21:30 06/20/25 21:31 DC 06/20/25 21:40 Lidocaine HCl 2.1 ml ONCE ONCE IJ 06/20/25 21:30 06/20/25 21:31 DC 06/20/25 21:40 Departure 1 Departure Time of Disposition: 21:33 Impression: Primary Impression: UTI (urinary tract infection) Disposition: 01 HOME / SELF CARE / HOMELESS Condition: Stable e-Prescriptions Nitrofurantoin Monohydrate Mac (Macrobid) 100 Mg Cap 100 MG PO BID for 5 Days, #10 CAP Prov: CALI GIFFORD 06/20/25 Discharged With: Self Critical Care Note Critical Care Time?: No Stability Stability form required: No Heart Score Heart Score: Heart Score Response (Comments) Value History N/A 0 EKG N/A 0 Age N/A 0 Risk Factors N/A 0 Troponin N/A 0 Total 0 I personally scribed for ER ([email or web address]) on 06/20/25 at 20:11. Electronically submitted by Torrie Chi ([email or web address]). I personally scribed for ER ([email or web address]) on 06/20/25 at 21:26. Electronically submitted by Torrie Chi ([email or web address]). ER Jun 20, 2025 20:11 CALI GIFFORD PR Jun 21, 2025 03:48
[2025-06-20 20:43] LABS: Urine Protein, UAD Negative (Negative)
[2025-06-20] MEDS ORDERED: cefTRIAXone W LIDOCAINE 1 GM IM IM ONE (21:30)
[2025-06-20] MEDS: cefTRIAXone SOD 1,000 MG VL IM ONE (21:40)
[2025-06-20] MEDS: LIDOCAINE 1% HCL (LOCAL ANESTH.) INJ 20ML MDV IJ ONE (21:40)
[2025-06-20 21:45] VITALS: BP 122/70; PULSE 99; RESP 18; TEMP 98.2; O2SAT 96
[2025-06-20] MEDS ORDERED: NITR-87 PO (21:52)
== END 2025-06-20 22:02 | disposition home or self-care (01) ==
LOC: ER 19:34
DX: N39.0 Urinary tract infection, site not specified (principal); I10 Essential (primary) hypertension; E78.5 Hyperlipidemia, unspecified; Z79.899 Other long term (current) drug therapy; Z87.442 Personal history of urinary calculi; Z90.49 Acquired absence of other specified parts of digestive tract; Z90.710 Acquired absence of both cervix and uterus
CPT/HCPCS: 81001; 96372; 99283; J0696; J2003